=== PATIENT | male | born 1960 | race Asian ===

== ENCOUNTER 2017-08-28 05:37 | Day surgery (SDC) | payer OTHER ==
[~2017-08-28] VITALS: Ht 157.5 cm; Wt 69.5 kg
[2017-08-28] MEDS ORDERED: PROPOFOL 1% 20 ML VIAL IVP ONE (05:38)
[2017-08-28] MEDS ORDERED: MIDAZOLAM HCL 2 MG/2 ML VIAL IVP ONE (05:38)
[2017-08-28] MEDS ORDERED: ONDANSETRON HCL 4 MG/2 ML VIAL IVP ONE (05:38)
[2017-08-28] MEDS ORDERED: KETAMINE HCL 50 MG/ML 10 ML VIAL IVP ONE (05:38)
[2017-08-28] MEDS ORDERED: FentaNYL CITRATE-PF 100 MCG/2 ML VIAL IVP ONE (05:38)
[2017-08-28] MEDS ORDERED: LIDOCAINE HCL/PF 2% 5 ML VIAL IM ONE (05:38)
[2017-08-28] MEDS ORDERED: RINGERS SOLUTION,LACTATED 1,000 ML IV ONE ×2 (05:45→06:00)
[2017-08-28] MEDS ORDERED: CeFAZolin 2 GM/DEXTROSE 50 ML IV ONE ×2 (05:46→08:00)
[2017-08-28] MEDS ORDERED: LOVA20 PO (05:59)
[2017-08-28] MEDS ORDERED: AMLO-511 PO (05:59)
[2017-08-28 06:42] LABS: BASOPHILS # (AUTO) 0.06 K/uL (0.00-0.20); BASOPHILS % (AUTO) 0.6 % (0.0-2.0); EOSINOPHILS # (AUTO) 0.41 K/uL (0.00-0.70); EOSINOPHILS % (AUTO) 4.75 % (1.0-6.0); HEMATOCRIT 41.9 % (41-53); HEMOGLOBIN 14.5 g/dL (13.5-17.5); LYMPHOCYTES # (AUTO) 2.1 K/uL (1.0-4.8); LYMPHOCYTES % (AUTO) 24.7 % (22.0-44.0); MEAN CORPUSCULAR HEMOGLOBIN 29.7 pg (26.0-34.0); MEAN CORPUSCULAR HGB CONC 34.6 G/dL (31.0-37.0); MEAN CORPUSCULAR VOLUME 86 fL (80-100); MONOCYTES # (AUTO) 0.7 K/uL (0.1-1.0); MONOCYTES % (AUTO) 7.9 % (2.0-9.0); NEUTROPHILS # (AUTO) 5.4 K/uL (1.8-7.7); PLATELET COUNT (AUTO) 361 K/uL (150-450); RED BLOOD CELL COUNT(AUTO) 4.88 MIL/uL (4.50-5.90); RED CELL DISTRIBUTION WIDTH 12.6 % (11.5-14.5)
[2017-08-28] MEDS ORDERED: LIDOCAINE HCL 2%/EPI 1:200,000/PF 20 ML VIAL ONE (06:42)
[2017-08-28 06:43] LABS: GLUCOMETER DEV NAME(LOC) SDS 5; GLUCOSE,POINT OF CARE 95 MG/DL (70-110)
[2017-08-28] MEDS ORDERED: GUM MASTIC/STORAX/MSAL/ALCOHOL LIQUID 0.67 ML VIAL TP ONE (06:43)
[2017-08-28] MEDS ORDERED: BUPIVACAINE HCL/PF 0.5% 30 ML VIAL ONE (06:43)
[2017-08-28] MEDS ORDERED: ROCURONIUM BROMIDE 10 MG/ML 5 ML VIAL ONE (07:00)
[2017-08-28] MEDS ORDERED: ACETAMINOPHEN 1000 MG/ISO-OSM 100 ML IV ONE (07:00)
[2017-08-28 07:07] LABS: ALANINE AMINOTRANSFERASE 39 U/L (12-78); ALBUMIN 3.8 g/dL (3.4-5.0); ALKALINE PHOSPHATASE 82 U/L (46-116); ASPARTATE AMINOTRANSFERASE 28 U/L (15-37); BILIRUBIN,TOTAL 0.4 mg/dL (0.1-1.0); CARBON DIOXIDE 29 mmol/L (22-29); CREATININE 0.93 mg/dL (0.60-1.30); GLOMERULAR FILTR. RATE CALC > 60 mL/min (>60); GLUCOSE,RANDOM 106 mg/dL (70-110); UREA NITROGEN, BLOOD 14 mg/dL (7-18)
[2017-08-28 07:17] LABS: ANION GAP 7 mmol/L (8-16); CHLORIDE 104 mmol/L (98-107); POTASSIUM 3.6 mmol/L (3.5-5.1); SODIUM SERUM 140 mmol/L (136-145)
[2017-08-28] MEDS ORDERED: HYDROmorphone 2 MG/ML SYRINGE IVP PRN (07:45)
[2017-08-28] MEDS ORDERED: MEPERIDINE-PF 25 MG/ML SYRINGE IVP PRN (07:45)
[2017-08-28] MEDS ORDERED: FentaNYL CITRATE-PF 100 MCG/2 ML VIAL IVP PRN (07:45)
[2017-08-28] MEDS ORDERED: OXYGEN THERAPY IH SCH (08:00)
[2017-08-28] MEDS ORDERED: RINGERS SOLUTION,LACTATED 500 ML IV ONE (08:08)
[2017-08-28] MEDS ORDERED: IBUPROFEN 600 MG TABLET PO PRN (08:15)
[2017-08-28] MEDS ORDERED: ACETAMINOPHEN 500 MG TABLET PO PRN (08:15)
== END 2017-08-28 09:40 | disposition home or self-care (01) ==
LOC: SURGERY 05:37
PROVIDERS: ATTEND Surgery
DX: M79.89 Other specified soft tissue disorders (principal); E11.9 Type 2 diabetes mellitus without complications; F15.90 Other stimulant use, unspecified, uncomplicated; I10 Essential (primary) hypertension; E78.00 Pure hypercholesterolemia, unspecified; Z79.899 Other long term (current) drug therapy
CPT/HCPCS: 21930; 36415; 80053; 82962; 83036; 85025; 88304; J0131; J0690; J2250; J2405; J2704; J3010; J3490 ×4; J7120 ×2